=== PATIENT | male | born 1980 | race Two or more races ===

== ENCOUNTER 2019-03-05 20:24 | Emergency (ER) | payer SELFPAY ==
[~2019-03-05] VITALS: Ht 188 cm; Wt 95.3 kg
[2019-03-05 20:28] VITALS: BP 142/89
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
[2019-03-05] MEDS ORDERED: IBUPROFEN600 MG ORAL (21:16)
[2019-03-05] MEDS ORDERED: NORCO 5-325 TA1 EACH ORAL (21:16)
[2019-03-05 21:26] VITALS: BP 142/89
--- NOTE | 2019-03-05 21:26 | NUR ---
ED Nurse Note: Crutches provided, patient was educated how to use them.
--- NOTE | 2019-03-05 21:27 | NUR ---
ER DISCHARGE NOTE: Patient is cleared to be discharged per ERMD, pt is aox4, on room air, with stable vital signs. pt was given dc and prescription instructions, pt was able to verbalize understanding, pt id band and iv site removed without complications. pt is able to ambulate with steady gait. pt took all belongings.
--- NOTE | 2019-03-06 12:19 | Diagnostic Imaging Report ---
Indication: right leg pain ankle trauma Comparison: None Findings: Two views of the right tibia and fibula and 4 view right ankle were obtained. Acute fracture of the lateral malleolus demonstrated. There is slight widening of the medial malleolus to talus distance suggestive of a ligamentous injury. IMPRESSION: Acute lateral malleolus fracture. Suspicion of deltoid ligament injury
== END 2019-03-05 21:30 | disposition home or self-care (01) ==
LOC: EDBD 20:24 → EMR 20:59
DX: S82.401A Unspecified fracture of shaft of right fibula, initial encounter for closed fracture (principal); V29.9XXA Motorcycle rider (driver) (passenger) injured in unspecified traffic accident, initial encounter; Y92.410 Unspecified street and highway as the place of occurrence of the external cause
CPT/HCPCS: 99284